=== PATIENT | male | born 1930 | race African-American/Black ===

== ENCOUNTER 2017-11-11 08:24 | Emergency (ER) | payer MEDICARE, OTHER ==
[~2017-11-11] VITALS: Ht 190.5 cm; Wt 113.0 kg
[~2017-11-11 08:24] MED LIST: LANS30CA55 PO; LOSARTAN PO; METF500T PO; NEFEDIPINE PO; TRAM100T34 PO
[2017-11-11] MEDS ORDERED: CLON0.1T PO (08:34)
[2017-11-11] MEDS ORDERED: RIVA20TA PO (08:34)
[2017-11-11] MEDS ORDERED: NEBI10TA2 PO (08:34)
[2017-11-11] MEDS ORDERED: AMI2 PO (08:35)
[2017-11-11] MEDS ORDERED: POTA20TA12 PO (08:35)
[2017-11-11] MEDS ORDERED: TRAMADOL 50MG TABLET PO ONE (09:30)
[2017-11-11 10:15] LABS: BASOPHILS % 0.2 % (0.0-2.0); EOSINOPHILS % 0.2 % (0.0-5.0); HEMATOCRIT. 32.4 % (42.0-52.0); LYMPHOCYTES % 8.7 % (20.0-50.0); MEAN CORPUSCULAR HEMOGLOBIN 30.4 pg (28.0-32.0); MEAN CORPUSCULAR VOLUME 89.2 fL (80.0-94.0); MEAN PLATELET VOLUME 8.1 fl (7.4-10.4); NEUTROPHILS % 83.9 % (40.0-76.0); PLATELET 241 x1000/uL (130-400); RED BLOOD CELL COUNT 3.63 mill/uL (4.7-6.1); RED CELL DISTRIBUTION WIDTH 14.9 % (11.6-14.6)
[2017-11-11 10:25] LABS: INR 1.2; PARTIAL THROMBOPLASTIN TIME 31.4 sec (23.4-31.0); PROTHROMBIN TIME 11.6 sec (9.1-11.1)
[2017-11-11 10:59] LABS: CLARITY URINE CLOUDY (CLEAR); COLOR URINE BLOODY (YELLOW); KETONES URINE TRACE (NEGATIVE); LEUKOCYTE ESTERASE URINE 3+ (NEGATIVE); NITRITE URINE NEGATIVE (NEGATIVE); OCCULT BLOOD URINE 3+ (NEGATIVE); PH URINE 6.5 (4.5-8.0); PROTEIN URINE 2+ (NEGATIVE); SPECIFIC GRAVITY URINE 1.014 (1.005-1.030)
[2017-11-11 11:52] VITALS: BP 145/86
== END 2017-11-11 12:08 | disposition home or self-care (01) ==
LOC: ER 08:34
DX: N30.01 Acute cystitis with hematuria (principal); M54.2 Cervicalgia; I10 Essential (primary) hypertension; Z88.6 Allergy status to analgesic agent; Z91.018 Allergy to other foods; Z79.899 Other long term (current) drug therapy; Z95.0 Presence of cardiac pacemaker; Z96.659 Presence of unspecified artificial knee joint
CPT/HCPCS: 36415; 81003; 85025; 85610; 85730; 86162; 87077; 87086; 87186; 99284